=== PATIENT | male | born 1965 | race African-American/Black ===

== ENCOUNTER 2019-06-13 11:47 | Inpatient (IN) | payer OTHER ==
[2019-06-13 12:24] LABS: BASO % 1.1 % (0-2.0); EOS % 1.3 % (0-4.5); HEMATOCRIT 42.9 % (35.4-49); HEMOGLOBIN 14.3 GM/dL (11.7-16.9); LYMPH % 16.5 % (8-40); MCH 31.3 pg (25.7-33.7); MCHC 33.4 g/dl (32.0-35.9); MEAN CELL VOLUME 93.7 fl (80-96); MEAN PLT VOLUME 7.8 fl (7.5-11.1); MONO % 11.7 % (3.8-10.2); NEUT % 69.4 % (42.8-82.8); PLATELET COUNT 225 K/MM3 (134-434); RBC 4.57 M/mm3 (4.00-5.60); RDW 13.7 % (11.9-15.9); WHITE BLOOD COUNT 7.4 K/mm3 (4.0-10.0)
--- NOTE | 2019-06-13 12:50 | PDOC ---
Attending Attestation - ED Attending Attestation I have performed the following: I have examined & evaluated the patient, The case was reviewed & discussed with the resident, I agree w/resident's findings & plan, Exceptions are as noted Heart Score/ECG Review - History History: Highly suspicious - Electrocardiogram EKG: Non specific repolarization disturbance - Age Age: 45-65 - Risk Factors Risk Factors Heart Score: Yes Hx Hypertension, Yes Smoking History Based on the list above the patient has:: 1-2 risk factors - Troponin Troponin: </= normal limit - Score Heart Score - Total: 5
--- NOTE | 2019-06-13 12:51 | PDOC ---
History of Present Illness - General Chief Complaint: Chest Pain Stated Complaint: CHEST PAIN Time Seen by Provider: 06/13/19 12:08 - History of Present Illness Initial Comments: 06/13/19 12:32 HPI: 53 y/o M 1/2ppd active smoker and HTN BIBEMS from clinic for chest pain. He states it started last night after he got off work around midnight and was walking home. When he got to his place place of residence ([facility]) he felt chest pain across his chest with radiation to the neck and scapulas. Pain has been constant since last night and is unchanged. Described as dull pain and 6/ 10. He also reports increased SOB since last night that got worse this morning. He also reports GIRALDO, nausea, and diaphoresis during the episode last night. He did not take any intervention since last night. He also reports cough x3 days that has become productive with rhinorrhea and congestion. He reports never having symptoms like these in the past. He denies fever, chills, palpitations, emesis, abd pain, LE edema PMHx: as noted above FH: HTN and HLD in his father ROS: as noted SHx: daily smoker 1/2ppd; no alcohol use; no rec drugs Allergies: NKDA ROS: GENERAL/CONSTITUTIONAL: No fever or chills. No weakness. HEAD, EYES, EARS, NOSE AND THROAT: No change in vision. No ear pain or discharge. No sore throat. CARDIOVASCULAR: +chest pain and shortness of breath RESPIRATORY: +cough; no wheezing, or hemoptysis. GASTROINTESTINAL: +nausea; no vomiting, diarrhea or constipation. GENITOURINARY: No dysuria, frequency, or change in urination. MUSCULOSKELETAL: No joint or muscle swelling or pain. No neck or back pain. SKIN: No rash NEUROLOGIC: +headache; no vertigo, loss of consciousness, or change in strength/ sensation. ENDOCRINE: No increased thirst. No abnormal weight change HEMATOLOGIC/LYMPHATIC: No anemia, easy bleeding, or history of blood clots. ALLERGIC/IMMUNOLOGIC: No hives or skin allergy. PE: GENERAL: Awake, alert, and fully oriented, no acute distress HEAD: No signs of trauma, normocephalic, atraumatic EYES: EOMI, sclera anicteric, conjunctiva clear ENT: Auricles normal inspection, hearing grossly normal, nares patent, oropharynx clear without exudates. Moist mucosa NECK: Normal ROM, no lymphadenopathy LUNGS: No increased work of breathing, symmetrical chest rise, clear to auscultation bilaterally, no wheezes, crackles or rhonchi HEART: Regular rate and rhythm, normal S1 and S2, no murmurs, peripheral pulses 2+ and equal bilaterally. ABDOMEN: Soft, nondistended, nontender, normoactive bowel sounds. No guarding, no rebound. No masses. No CVAT EXTREMITIES: Normal inspection, Normal range of motion, no edema. No clubbing or cyanosis. NEUROLOGICAL: Cranial nerves II through XII grossly intact. Normal speech, normal gait, no focal sensorimotor deficits SKIN: Warm, Dry, normal turgor, no rashes or lesions noted Past History - Past Medical History Allergies/Adverse Reactions: Allergies Allergy/AdvReac Type Severity Reaction Status Date / Time No Known Allergies Allergy Verified 06/13/19 12:04 Home Medications: Ambulatory Orders NK [No Known Home Medication] 06/13/19 Anemia: No Asthma: No Cancer: No Cardiac Disorders: No CVA: No COPD: No CHF: No Dementia: No Diabetes: No GI Disorders: No Disorders: No HTN: Yes Hypercholesterolemia: No Liver Disease: No Seizures: No Thyroid Disease: No Other medical history: daily smoker - Surgical History GI Surgery: Yes (Hernia [id number]) - Psycho Social/Smoking Cessation Hx Smoking History: Current every day smoker Have you smoked in the past 12 months: Yes Number of Cigarettes Smoked Daily: 20 Information on smoking cessation initiated: No Hx Alcohol Use: No Drug/Substance Use Hx: No *Physical Exam - Vital Signs Last Vital Signs Temp Pulse Resp BP Pulse Ox 97.8 F 77 18 134/96 100 06/13/19 12:01 06/13/19 12:01 06/13/19 12:01 06/13/19 12:01 06/13/19 12:01 Heart Score/ECG Review - History History: Highly suspicious - Electrocardiogram EKG: Non specific repolarization disturbance - Age Age: 45-65 - Risk Factors Risk Factors Heart Score: Yes Hx Hypertension, Yes Smoking History Based on the list above the patient has:: 1-2 risk factors - Troponin Troponin: </= normal limit - Score Heart Score - Total: 5 ED Treatment Course - LABORATORY CBC & Chemistry Diagram: 06/13/19 12:19 06/13/19 12:19 - ADDITIONAL ORDERS Additional order review: 06/13/19 12:19 RBC 4.57 MCV 93.7 MCHC 33.4 RDW 13.7 MPV 7.8 D Neutrophils % 69.4 Lymphocytes % 16.5 D Monocytes % 11.7 H D Eosinophils % 1.3 Basophils % 1.1 - RADIOLOGY Radiology Studies Ordered: Category Date Time Status CHEST PA & LAT [RAD] Stat Radiology 06/13/19 12:29 Ordered Medical Decision Making - Medical Decision Making 06/13/19 13:06 53 y/o M 1/2ppd active smoker and HTN BIBEMS from clinic for chest pain associated with SOB, nausea, diaphoresis following exertion. BP 134/96 HR 77 O2 sats 100%. PE unremarkable. -cbc, cmp, trop, ekg, cxr 06/13/19 13:12 EKG: nsr, 1mm jan in leads v3/4 concave with j points without reciprocal changes , no t wave inversions, nl intervals HEART score 5 palces patient at moderate risk; will admit patient for tele obs 06/13/19 14:[address] Rea Discharge - Discharge Information Problems reviewed: Yes Clinical Impression/Diagnosis: Chest pain Qualifiers: Chest pain type: unspecified Qualified Code(s): R07.9 - Chest pain, unspecified Condition: Fair - Admission Yes - Follow up/Referral Referrals: Melinda Fox [Primary Care Provider] - - Patient Discharge Instructions - Post Discharge Activity
--- NOTE | 2019-06-13 12:54 | EKG ---
Test Reason : Blood Pressure : / mmHG Vent. Rate : 083 BPM Atrial Rate : 083 BPM P-R Int : 146 ms QRS Dur : 078 ms QT Int : 404 ms P-R-T Axes : 069 -26 035 degrees QTc Int : 474 ms NORMAL SINUS RHYTHM PROLONGED QT ABNORMAL ECG NO PREVIOUS ECGS AVAILABLE Confirmed by PAM MARQUEZ MD ([id number]) on 06/13/2019 12:54:42 PM Referred By: BARB HUERTAS Confirmed By:PAM MARQUEZ MD
[2019-06-13 13:09] LABS: ALBUMIN 3.6 g/dl (3.4-5.0); ALK PHOS 61 U/L (45-117); ANION GAP 5 MMOL/L (8-16); BILIRUBIN,TOTAL 0.4 mg/dL (0.2-1); BLOOD UREA NITROGEN 12.4 mg/dL (7-18); CALCIUM 8.4 mg/dL (8.5-10.1); CHLORIDE 105 mmol/L (98-107); CO2 27 mmol/L (21-32); GLUCOSE,RANDOM 79 mg/dL (74-106); POTASSIUM 4.4 mmol/L (3.5-5.1); SGOT/AST 34 U/L (15-37); SGPT/ALT 33 U/L (13-61); SODIUM 137 mmol/L (136-145); TOT PROT 6.4 g/dl (6.4-8.2)
--- NOTE | 2019-06-13 13:48 | PDOC ---
Documentation entered by Carlos Monge SCRIBE, acting as scribe for Rustam Alvarez MD. Rustam Alvarez MD: This documentation has been prepared by the Mariposa mason Xhesika, SCRIBE, under my direction and personally reviewed by me in its entirety. I confirm that the documentation accurately reflects all work, treatment, procedures, and medical decision making performed by me. Attending Attestation - Resident Resident Name: HenriPedro - ED Attending Attestation I have performed the following: I have examined & evaluated the patient, The case was reviewed & discussed with the resident, I agree w/resident's findings & plan, Exceptions are as noted - HPI HPI: 06/13/19 13:08 The patient is a 53 year old male with a PMH ppd active smoker BIBEMS from clinic for chest pain since last night. 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 Patient describes his CP as severe, constant, 6/10 in severity, like someone is sitting on his chest, radiating to his neck, associated with nausea, dizziness, sweating and SOB. Pt denies any alleviating or worsening factors. The patient denies leg swelling, abdominal pain, headache, fever, chills, cough, vomiting, diarrhea and constipation. Denies dysuria, frequency, urgency and hematuria. Allergies:, NKDA Social Hx: 1/2 ppd active smoker. Denies substance usage. Surgical Hx: abd hernia (at [facility]) - Physicial Exam PE: 06/13/19 13:09 Vitals: Triage Vital signs reviewed General Appearance: no acute distress, well nourished well developed, Neck: Supple;No Nuchal rigidity Chest Wall: Nontender Cardiac: Regular rate and rhythm, no murmurs, no rubs, no gallops, Lungs: Clear to auscultation bilateral, good air movement bilaterally, Abdomen: Soft, nondistended, normal bowel sounds, nontender to palpation Extremities: Full range of motion to all extremities, no cyanosis, clubbing, or edema Skin: Warm and dry, no rashes or lesions, no petechiae Psych: normal mood, normal affect 06/13/19 15:55 - Medical Decision Making 06/13/19 15:56 Moderately suspicious story heart score 5 nonischemic EKG first troponin negative multiple risk factors will observe for cardiac consultation and further evaluation to rule out ACS Heart Score/ECG Review - History History: Highly suspicious - Electrocardiogram EKG: Non specific repolarization disturbance - Age Age: 45-65 - Risk Factors Risk Factors Heart Score: Yes Hx Hypercholesterolemia, Yes Hx Hypertension, Yes Smoking History Based on the list above the patient has:: 1-2 risk factors - Troponin Troponin: </= normal limit - Score Heart Score - Total: 5 - ECG Impressions Comment:: 06/13/19 15:56 Septal J-point elevations No reciprocal changes Interpreted by me.
--- NOTE | 2019-06-13 14:47 | HP ---
CHIEF COMPLAINT: Chest pain PCP: Dr Busby HISTORY OF PRESENT ILLNESS: Pt is a 53 y/o M with a significant past medical history of HTN, HLD, and prediabetes who presented to [facility] due to chest pain and shortness of breath. Pt endorses that his chest pain commenced yesterday evening around midnight. Pt was returning from work to his home when the pain began. Pt was not exerting himself. Pain is described as crushing, radiates to his back and neck, and is a 7/10 in severity. Pt endorses he has never experienced these symptoms before. States he has been smoking 1 PPD of cigarettes since he was 12 years old. States he vomited 1-2 times since the onset of the pain, Pt endorses shortness of breath and a "pounding headache". Denies LOC. ER course was notable for: (1) EKG--> T Wave inversion in V4 on EKG done at [facility]. (2) 1st trop negative. (3)CXR---> no widened mediastinum, infiltrates, or congestive changes. Allergies: Penicillin, Codeine, and PPD HOME MEDICATIONS: Home Medications Medication Instructions Recorded NK [No Known Home Medication] 06/13/19 REVIEW OF SYSTEMS CONSTITUTIONAL: Absent: fever, chills, diaphoresis, generalized weakness, malaise, loss of appetite, weight change HEENT: Absent: rhinorrhea, nasal congestion, throat pain, throat swelling, difficulty swallowing, mouth swelling, ear pain, eye pain, visual changes CARDIOVASCULAR: PRESENT: chest pain RESPIRATORY: Absent: cough, shortness of breath, dyspnea with exertion, orthopnea, wheezing, stridor, hemoptysis GASTROINTESTINAL: Absent: abdominal pain, abdominal distension, nausea, vomiting, diarrhea, constipation, melena, hematochezia GENITOURINARY: Absent: dysuria, frequency, urgency, hesitancy, hematuria, flank pain, genital pain MUSCULOSKELETAL: Absent: myalgia, arthralgia, joint swelling, back pain, neck pain SKIN: Absent: rash, itching, pallor HEMATOLOGIC/IMMUNOLOGIC: Absent: easy bleeding, easy bruising, lymphadenopathy, frequent infections ENDOCRINE: Absent: unexplained weight gain, unexplained weight loss, heat intolerance, cold intolerance NEUROLOGIC: Absent: headache, focal weakness or paresthesias, dizziness, unsteady gait, seizure, mental status changes, bladder or bowel incontinence PSYCHIATRIC: Absent: anxiety, depression, suicidal or homicidal ideation, hallucinations. PHYSICAL EXAMINATION Vital Signs - 24 hr 06/13/19 12:01 Temperature 97.8 F Pulse Rate 77 Respiratory 18 Rate Blood Pressure 134/96 O2 Sat by Pulse 100 Oximetry (%) GENERAL: NAD AAOx3 HEAD: Normal with no signs of trauma. EYES: Sclera Clear EOMI EARS, NOSE, THROAT: MMM NECK: Supple LUNGS: CTA B/l HEART: RRR S1S2 Chest: No tenderness to palpation of anterior chest wall ABDOMEN: Soft, Nondistended MUSCULOSKELETAL: FROM LOWER EXTREMITIES: No CCE NEUROLOGICAL: Cranial nerves II-XII intact. Normal speech. PSYCHIATRIC: Cooperative. Good eye contact. Appropriate mood and affect. SKIN: Warm, dry, normal turgor, no rashes or lesions noted, normal capillary refill. Laboratory Results - last 24 hr 06/13/19 06/13/19 12:19 12:19 WBC 7.4 RBC 4.57 Hgb 14.3 Hct 42.9 MCV 93.7 MCH 31.3 MCHC 33.4 RDW 13.7 Plt Count 225 MPV 7.8 D Absolute Neuts (auto) 5.2 Neutrophils % 69.4 Lymphocytes % 16.5 D Monocytes % 11.7 H D Eosinophils % 1.3 Basophils % 1.1 Nucleated RBC % 0 Sodium 137 Potassium 4.4 Chloride 105 Carbon Dioxide 27 Anion Gap 5 L BUN 12.4 Creatinine 1.0 Est GFR (CKD-EPI)AfAm 98.46 Est GFR (CKD-EPI)NonAf 84.95 Random Glucose 79 Calcium 8.4 L Total Bilirubin 0.4 AST 34 ALT 33 Alkaline Phosphatase 61 Troponin I < 0.02 Total Protein 6.4 Albumin 3.6 ASSESSMENT/PLAN: Pt is a 53 y/o M with a significant past medical history of HTN, HLD, and prediabetes who presented to [facility] due to chest pain and shortness of breath. #Chest Pain-r/o ACS -1st Troponin is negative. will trend -Echocardiogram to assess for any wall motion abnormalities -Cardiology Consult. recs appreciated -lipid Profile -HgA1c -Repeat EKG -Tele monitoring -Urine toxicology #FEN -No standing fluids -Monitor Electrolytes -Sodium Controlled Diet #DVT ppx: -HEPSQTID #Dispo -Tele Obs Visit type - Emergency Visit Emergency Visit: Yes ED Registration Date: 06/13/19 Care time: The patient presented to the Emergency Department on the above date and was hospitalized for further evaluation of their emergent condition. - New Patient This patient is new to me today: Yes Date on this admission: 06/13/19 - Critical Care Critical Care patient: No
--- NOTE | 2019-06-13 15:45 | ECHO ---
Name: BLANCA ANKUR Exam:Adult Echocardiogram Study Date: 06/13/2019 02:45 PM Age: 53 yrs Reason For Study: R/O LV Dysfunction Height: 71 in Weight: 179 lb BSA: 2.0 m2 MMode/2D Measurements & Calculations IVSd: 1.2 cm Ao root diam: 3.3 cm LVIDd: 4.0 cm LA dimension: 3.4 cm LVIDs: 2.8 cm ACS: 2.0 cm LVPWd: 1.5 cm EDV(Teich): 71.4 ml LVOT diam: 2.0 cm ESV(Teich): 30.4 ml RV S Walker: 16.2 cm/sec Doppler Measurements & Calculations MV E max walker: 56.3 cm/sec Ao V2 max: 180.5 cm/sec MV A max walker: 46.4 cm/sec Ao max P.0 mmHg MV E/A: 1.2 Ao V2 mean: 121.5 cm/sec MV dec time: 0.35 sec Ao mean P.9 mmHg Ao V2 VTI: 34.7 cm JOSEPH(I,D): 2.1 cm2 JOSEPH(V,D): 2.0 cm2 LV V1 max P.8 mmHg SV(LVOT): 71.4 ml LV V1 mean P.3 mmHg LV V1 max: 109.8 cm/sec LV V1 mean: 70.5 cm/sec LV V1 VTI: 22.1 cm TR max walker: 222.2 cm/sec Med Peak E' Walker: 11.7 cm/sec TR max P.8 mmHg Med E/e': 4.8 Lat Peak E' Walker: 12.2 cm/sec Lat E/e': 4.6 Left Ventricle There is mild concentric left ventricular hypertrophy. Left ventricular systolic function is normal. Ejection Fraction = 55-60%. Right Ventricle The right ventricle is normal in size and function. Atria Normal left and right atrial size and function. Mitral Valve There is mild mitral valve thickening. There is no mitral valve stenosis. There is trace to mild mitr al regurgitation. Tricuspid Valve The tricuspid valve is normal in structure and function. There is mild tricuspid regurgitation. Right ventricular systolic pressure is normal. Aortic Valve There is mild aortic valve thickening. No hemodynamically significant valvular aortic stenosis. No ao rtic regurgitation is present. Pulmonic Valve The pulmonic valve is not well seen, but is grossly normal. There is no pulmonic valvular stenosis. T here is no pulmonic valvular regurgitation. Great Vessels The aortic root is normal size. Pericardium/Pleura There is no pericardial effusion. Interpretation Summary There is mild concentric left ventricular hypertrophy. Left ventricular systolic function is normal. Ejection Fraction = 55-60%. The right ventricle is normal in size and function. There is mild mitral valve thickening. There is trace to mild mitral regurgitation. There is mild tricuspid regurgitation. Right ventricular systolic pressure is normal. There is no pericardial effusion. MD Watt *Ami 06/13/2019 03:45 PM
--- NOTE | 2019-06-13 16:02 | CON.CARD ---
Consult Consult Specialty:: Cardiology Referred by:: Hospitalist Medicine Reason for Consultation:: Chest pain - History of Present Illness Chief Complaint: Chest pain History of Present Illness: Pt is a 53 y/o M with a significant past medical history of HTN, HLD, and prediabetes not on meds who presented to [facility] due to chest pain and shortness of breath. Pt endorses that his chest pain commenced yesterday evening around midnight. Pain is described as pressure, radiates to his back and neck, spontaneously improving. States he has been smoking 1 PPD of cigarettes since he was 12 years old, reports chronic EASLEY, denies near or true syncope, palpitations, orthopnea, PND or LE edema. Multiple stressors, living in half-way. Allergies:, NKDA Social Hx: 1/2 ppd active smoker. Denies substance usage. Surgical Hx: abd hernia (at [facility]) - History Source History Provided By: Patient Limitations to Obtaining History: No Limitations - Alcohol/Substance Use Hx Alcohol Use: No - Smoking History Smoking history: Current every day smoker Have you smoked in the past 12 months: Yes Aproximately how many cigarettes per day: 20 Home Medications - Allergies Allergies/Adverse Reactions: Allergies Allergy/AdvReac Type Severity Reaction Status Date / Time codeine Allergy Verified 06/13/19 16:12 Penicillins Allergy Verified 06/13/19 16:12 PPD black rubber mix Allergy Verified 06/13/19 16:12 - Home Medications Home Medications: Ambulatory Orders NK [No Known Home Medication] 06/13/19 Review of Systems - Review of Systems Cardiovascular: reports: Chest Pain Vital Signs: Vital Signs Temperature 97.8 F 06/13/19 12:01 Pulse Rate 77 06/13/19 12:01 Respiratory Rate 18 06/13/19 12:01 Blood Pressure 134/96 06/13/19 12:01 O2 Sat by Pulse Oximetry (%) 100 06/13/19 12:01 Constitutional: Yes: No Distress, Calm Neck: Yes: Supple Respiratory: Yes: Regular, CTA Bilaterally Gastrointestinal: Yes: Soft, Hypoactive Bowel Sounds Cardiovascular: Yes: Regular Rate and Rhythm JVD: No Carotid Bruit: No Heart Sounds: Yes: S1, S2 Edema: No - Other Data Labs, Other Data: CBC, BMP 06/13/19 12:19 06/13/19 12:19 Troponin, BNP 06/13/19 12:19 Troponin I < 0.02 Troponin, BNP 06/13/19 12:19 Troponin I < 0.02 NSR @ 73 early repolarization Echo: Report Reviewed Ejection Fraction %: LVEF > or = 40 % Imaging - Results Chest X-ray: Report Reviewed (NAD) Problem List - Problems (1) Chest pain Code(s): R07.9 - CHEST PAIN, UNSPECIFIED Qualifiers: Chest pain type: precordial pain Qualified Code(s): R07.2 - Precordial pain (2) Hypertensive heart disease Code(s): I11.9 - HYPERTENSIVE HEART DISEASE WITHOUT HEART FAILURE Qualifiers: Heart failure presence: without heart failure Qualified Code(s): I11.9 - Hypertensive heart disease without heart failure Assessment/Plan 06/13/2019 Echo: Mild cLVH , normal LVEF 55-60%, normal RV size and fxn, mild TR normal RVSP, tr-mild MR 1. Chest pain/LIV 2. HTN heart disease 3. Hyperlipidemia 4. Prediabetes P:1. Ruling out for [place] 2. Consider exercise treadmill stress testing after r/o WI to assess r/o ischemia, but patient is not inclined to stay pver weekend for testing 3. Check TSH, lipid panel, Ha1c 4. Thank you for consultative opportunity
--- NOTE | 2019-06-13 16:47 | PN ---
Teaching Attending Note Name of Resident: Gagandeep Gaston ATTENDING PHYSICIAN STATEMENT I saw and evaluated the patient. I reviewed the resident's note and discussed the case with the resident. I agree with the resident's findings and plan as documented. SUBJECTIVE: Patient is a 53 y/o M with Pmhx of HTN, HLD, and prediabetes who presented to [facility] due to chest pain and shortness of breath. Denies having any chest pain at this time. OBJECTIVE: Vital Signs Temperature 97.8 F 06/13/19 12:01 Pulse Rate 77 06/13/19 12:01 Respiratory Rate 18 06/13/19 12: Blood Pressure 134/96 06/13/19 12: O2 Sat by Pulse Oximetry (%) 100 06/13/19 12:01 GENERAL: The patient is awake, alert, and fully oriented, in no acute distress. HEAD: Normal with no signs of trauma. EYES: PERRL, extraocular movements intact, sclera anicteric, conjunctiva clear. ENT: Ears normal, oropharynx clear without exudates, moist mucous membranes. NECK: Trachea midline, full range of motion, supple. LUNGS: Breath sounds equal, clear to auscultation bilaterally, no wheezes, no crackles, no accessory muscle use. HEART: Regular rate and rhythm, S1, S2 without murmur, rub or gallop. ABDOMEN: Soft, nontender, nondistended, normoactive bowel sounds, no guarding, no rebound, no hepatosplenomegaly, no masses. EXTREMITIES: 2+ pulses, warm, well-perfused, no edema. NEUROLOGICAL: Cranial nerves II through XII grossly intact. Normal speech, gait not observed. PSYCH: Normal mood, normal affect. SKIN: Warm, dry, normal turgor, no rashes or lesions noted CBCD WBC 7.4 K/mm3 (4.0-10.0) 06/13/19 12: RBC 4.57 M/mm3 (4.00-5.60) 06/13/19 12:19 Hgb 14.3 GM/dL (11.7-16.9) 06/13/19 12:19 Hct 42.9 % (35.4-49) 06/13/19 12:19 MCV 93.7 fl (80-96) 06/13/19 12:19 MCHC 33.4 g/dl (32.0-35.9) 06/13/19 12:19 RDW 13.7 % (11.9-15.9) 06/13/19 12:19 Plt Count 225 K/MM3 (134-434) 06/13/19 12:19 MPV 7.8 fl (7.5-11.1) D 06/13/19 12:19 CMP Sodium 137 mmol/L (136-145) 06/13/19 12:19 Potassium 4.4 mmol/L (3.5-5.1) 06/13/19 12:19 Chloride 105 mmol/L (98-107) 06/13/19 12:19 Carbon Dioxide 27 mmol/L (21-32) 06/13/19 12:19 Anion Gap 5 MMOL/L (8-16) L 06/13/19 12:19 BUN 12.4 mg/dL (7-18) 06/13/19 12:19 Creatinine 1.0 mg/dL (0.55-1.3) 06/13/19 12:19 Random Glucose 79 mg/dL (74-106) 06/13/19 12:19 Calcium 8.4 mg/dL (8.5-10.1) L 06/13/19 12:19 Total Bilirubin 0.4 mg/dL (0.2-1) 06/13/19 12:19 AST 34 U/L (15-37) 06/13/19 12:19 ALT 33 U/L (13-61) 06/13/19 12:19 Alkaline Phosphatase 61 U/L (45-117) 06/13/19 12:19 Total Protein 6.4 g/dl (6.4-8.2) 06/13/19 12:19 Albumin 3.6 g/dl (3.4-5.0) 06/13/19 12:19 CARDIAC ENZYMES Troponin I < 0.02 ng/ml (0.00-0.05) 06/13/19 12:19 Current Medications Generic Name Dose Route Start Last Admin Trade Name Elizabeth PRN Reason Stop Dose Admin Aspirin 81 mg 06/14/19 10:00 Ecotrin - PO DAILY NEIL Heparin Sodium (Porcine) 5,000 unit 06/13/19 22:00 Heparin - SQ TID COUNTS INCLUDE 234 BEDS AT THE [facility] Home Medications Medication Instructions Recorded NK [No Known Home Medication] 06/13/19 ECHO: mild concentric left ventricular hypertrophy LV systolic Function is Nl EJF: 55-60% trace Mr, mild MR NSR @ 73 early repolarization ASSESSMENT AND PLAN: Pt is a 53 y/o M with a PMhx of HTN, HLD, and prediabetes who presented to the hospital due to having chest pain with shortness of breath. #Acute cp r/o ACS; 2 sets of trops are negative. will trend, lipid panel, echo is done as above , lipid Profile, HgA1c -Repeat EKG in am , Tele monitoring. As per cardio discussion with would like stress test in patient on Sunday since patient is a high risk with Heart score of 5 and Ekg with early repolarizaTION. ECasa 81mg daily. Exercise treadmill stress testing after r/o [place] to assess and r/o ischemia, but patient is not inclined to stay pver weekend for testing #Hx of HLD: will repeat lipid panel # hx of prediabetus: check hgb A1c, tsh ,ft4 # Hx of HTN will monitor DVT ppx: heparin patient wanted to sign AMA , as per cardiology patient cannot be discharged, until stress test on Sunday.
[2019-06-13 17:36] LABS: CHOLESTEROL 133 mg/dL (50-200); HDL CHOLESTEROL 55 mg/dL (40-60); LDL CHOLESTEROL (ONLY SJRH) 71 mg/dL (5-100); TRIGLYCERIDES 66 mg/dL (0-150)
[2019-06-13] MEDS: HEPARIN NA (PORCINE) 5,000 UNITS/ML 1ML VIAL SQ SCH (21:29)
[2019-06-13 21:47] VITALS: BMI 24.6
[2019-06-14] MEDS: HEPARIN NA (PORCINE) 5,000 UNITS/ML 1ML VIAL SQ SCH ×2 (05:47→14:09)
[2019-06-14] MEDS ORDERED: NICOTINE 7 MG/24 HOURS TOPICAL PATCH TD ONE (06:52)
[2019-06-14 08:56] LABS: BASO % 0.6 % (0-2.0); EOS % 3.2 % (0-4.5); HEMATOCRIT 42.5 % (35.4-49); HEMOGLOBIN 14.3 GM/dL (11.7-16.9); LYMPH % 38.5 % (8-40); MCH 31.6 pg (25.7-33.7); MCHC 33.6 g/dl (32.0-35.9); MEAN CELL VOLUME 93.9 fl (80-96); MEAN PLT VOLUME 8.4 fl (7.5-11.1); MONO % 11.6 % (3.8-10.2); NEUT % 46.1 % (42.8-82.8); PLATELET COUNT 230 K/MM3 (134-434); RBC 4.53 M/mm3 (4.00-5.60); RDW 13.4 % (11.9-15.9); WHITE BLOOD COUNT 5.7 K/mm3 (4.0-10.0)
[2019-06-14 08:59] LABS: INR 0.98 (0.83-1.09); PROTHROMBIN TIME (PATIENT) 11.6 SEC (9.7-13.0)
[2019-06-14 09:02] LABS: ACTIVATED PTT 35.3 SECONDS (25.2-36.5)
[2019-06-14 09:23] LABS: MAGNESIUM 2.2 mg/dL (1.8-2.4); PHOSPHOROUS 4.1 mg/dL (2.5-4.9)
[2019-06-14] MEDS ORDERED: ASPIRIN COATED 81 MG TABLET.EC PO SCH (10:00)
--- NOTE | 2019-06-14 11:42 | PN ---
Progress Note (short form) - Note Progress Note: Patient is a 53 y/o M with Pmhx of HTN, HLD, and prediabetes who presented to [facility] due to chest pain and shortness of breath. Denies having any chest pain at this time. Patient's at bedside, asking for anxiety medication . OBJECTIVE: Vital Signs Temperature 97.3 F L 06/14/19 06:27 Pulse Rate 95 H 06/14/19 06:27 Respiratory Rate 20 06/14/19 06:27 Blood Pressure 120/65 06/14/19 06:27 O2 Sat by Pulse Oximetry (%) 100 06/13/19 21:00 GENERAL: The patient is awake, alert, and fully oriented, in no acute distress. HEAD: Normal with no signs of trauma. EYES: PERRL, extraocular movements intact, sclera anicteric, conjunctiva clear. ENT: Ears normal, oropharynx clear without exudates, moist mucous membranes. NECK: Trachea midline, full range of motion, supple. LUNGS: Breath sounds equal, clear to auscultation bilaterally, no wheezes, no crackles, no accessory muscle use. HEART: Regular rate and rhythm, S1, S2 without murmur, rub or gallop. ABDOMEN: Soft, NT,ND, no guarding, no rebound, no hepatosplenomegaly, no masses. EXTREMITIES: 2+ pulses, warm, well-perfused, no edema. NEUROLOGICAL: Cranial nerves II through XII grossly intact. Normal speech, gait not observed. PSYCH: Normal mood, normal affect. SKIN: Warm, dry, normal turgor, no rashes or lesions noted CBCD WBC 5.7 K/mm3 (4.0-10.0) 06/14/19 07:30 RBC 4.53 M/mm3 (4.00-5.60) 06/14/19 07:30 Hgb 14.3 GM/dL (11.7-16.9) 06/14/19 07:30 Hct 42.5 % (35.4-49) 06/14/19 07:30 MCV 93.9 fl (80-96) 06/14/19 07:30 MCHC 33.6 g/dl (32.0-35.9) 06/14/19 07:30 RDW 13.4 % (11.9-15.9) 06/14/19 07:30 Plt Count 230 K/MM3 (134-434) 06/14/19 07:30 MPV 8.4 fl (7.5-11.1) 06/14/19 07:30 CMP Sodium 137 mmol/L (136-145) 06/13/19 12:19 Potassium 4.4 mmol/L (3.5-5.1) 06/13/19 12:19 Chloride 105 mmol/L (98-107) 06/13/19 12:19 Carbon Dioxide 27 mmol/L (21-32) 06/13/19 12:19 Anion Gap 5 MMOL/L (8-16) L 06/13/19 12:19 BUN 12.4 mg/dL (7-18) 06/13/19 12:19 Creatinine 1.0 mg/dL (0.55-1.3) 06/13/19 12:19 Random Glucose 79 mg/dL (74-106) 06/13/19 12:19 Calcium 8.4 mg/dL (8.5-10.1) L 06/13/19 12:19 Total Bilirubin 0.4 mg/dL (0.2-1) 06/13/19 12:19 AST 34 U/L (15-37) 06/13/19 12:19 ALT 33 U/L (13-61) 06/13/19 12:19 Alkaline Phosphatase 61 U/L (45-117) 06/13/19 12:19 Total Protein 6.4 g/dl (6.4-8.2) 06/13/19 12:19 Albumin 3.6 g/dl (3.4-5.0) 06/13/19 12:19 CARDIAC ENZYMES Troponin I < 0.02 ng/ml (0.00-0.05) 06/13/19 16:52 Current Medications Generic Name Dose Route Start Last Admin Trade Name Freq PRN Reason Stop Dose Admin Aspirin 81 mg 06/14/19 10:00 06/14/19 10:18 Ecotrin - PO 81 mg DAILY NEIL Administration Heparin Sodium (Porcine) 5,000 unit 06/13/19 22:00 06/14/19 05:47 Heparin - SQ 5,000 unit TID NEIL Administration CBCD WBC 5.7 K/mm3 (4.0-10.0) 06/14/19 07:30 RBC 4.53 M/mm3 (4.00-5.60) 06/14/19 07:30 Hgb 14.3 GM/dL (11.7-16.9) 06/14/19 07:30 Hct 42.5 % (35.4-49) 06/14/19 07:30 MCV 93.9 fl (80-96) 06/14/19 07:30 MCHC 33.6 g/dl (32.0-35.9) 06/14/19 07:30 RDW 13.4 % (11.9-15.9) 06/14/19 07:30 Plt Count 230 K/MM3 (134-434) 06/14/19 07:30 MPV 8.4 fl (7.5-11.1) 06/14/19 07:30 CMP Sodium 137 mmol/L (136-145) 06/13/19 12:19 Potassium 4.4 mmol/L (3.5-5.1) 06/13/19 12:19 Chloride 105 mmol/L (98-107) 06/13/19 12:19 Carbon Dioxide 27 mmol/L (21-32) 06/13/19 12:19 Anion Gap 5 MMOL/L (8-16) L 06/13/19 12:19 BUN 12.4 mg/dL (7-18) 06/13/19 12:19 Creatinine 1.0 mg/dL (0.55-1.3) 06/13/19 12:19 Random Glucose 79 mg/dL (74-106) 06/13/19 12:19 Calcium 8.4 mg/dL (8.5-10.1) L 06/13/19 12:19 Total Bilirubin 0.4 mg/dL (0.2-1) 06/13/19 12:19 AST 34 U/L (15-37) 06/13/19 12:19 ALT 33 U/L (13-61) 06/13/19 12:19 Alkaline Phosphatase 61 U/L (45-117) 06/13/19 12:19 Total Protein 6.4 g/dl (6.4-8.2) 06/13/19 12:19 Albumin 3.6 g/dl (3.4-5.0) 06/13/19 12:19 CARDIAC ENZYMES Troponin I < 0.02 ng/ml (0.00-0.05) 06/13/19 16:52 ECHO: mild concentric left ventricular hypertrophy LV systolic Function is Nl EJF: 55-60% trace Mr, mild MR NSR @ 73 early repolarization ASSESSMENT AND PLAN: Pt is a 53 y/o M with a PMhx of HTN, HLD, and prediabetes who presented to the hospital due to having chest pain with shortness of breath. #Acute cp r/o ACS; 2 sets of trops are negative. lipid panel nl, echo is done as above , HgA1c is normal. As per cardio patient can be discharged home. As per Dr. Luz patient can have a stress test as an outpatient. Continue Ecotrin 81mg daily. Given an apoointment with the clinic and cardiology # As per patient has a hx of PTSD and anxiety: seen and prescribed 5mg lexapro po daily and follow up with his psychiatrist as an outpatient. #Hx of HLD: will repeat lipid panel # hx of prediabetus: within nl limit # Hx of HTN will monitor patient can be discharged home.
[2019-06-14 12:01] LABS: ALBUMIN 3.6 g/dl (3.4-5.0); BILIRUBIN,TOTAL 0.4 mg/dL (0.2-1); BLOOD UREA NITROGEN 24.4 mg/dL (7-18); CALCIUM 8.5 mg/dL (8.5-10.1); CREATININE 1.1 mg/dL (0.55-1.3); POTASSIUM 4.5 mmol/L (3.5-5.1); TOT PROT 6.3 g/dl (6.4-8.2)
--- NOTE | 2019-06-14 12:27 | PN ---
Progress Note (short form) - Note Progress Note: Chief Complaint: Events noted, notes reviewed, denies any recurrent chest pain or dyspnea History of Present Illness: Seen and examined. Events noted, notes reviewed, denies any recurrent chest pain or dyspnea Patient reports anxiety and rueda s a history of PTSD - Current Medication List Current Medications Aspirin (Ecotrin -) 81 mg PO DAILY [facility] Last Admin: 06/14/19 10:18 Dose: 81 mg Heparin Sodium (Porcine) (Heparin -) 5,000 unit SQ TID [facility] Last Admin: 06/14/19 05:47 Dose: 5,000 unit - Objective Vital Signs: Last Vital Signs Temp Pulse Resp BP Pulse Ox 97.3 F L 95 H 20 120/65 100 06/14/19 06:27 06/14/19 06:27 06/14/19 06:27 06/14/19 06:27 06/13/19 21:00 Intake & Output 06/11/19 06/12/19 06/13/19 06/14/19 23:59 23:59 23:59 23:59 Intake Total 500 Balance 500 Weight 176 lb 8 oz Neck: Supple Negative JVD No Bruit Respiratory: Clear to A&P Bilaterally Cardiovascular: S1 S2 Regular Rate and Rhythm Gastrointestinal: Soft Benign Normal Bowel Sounds Ext: No Edema Labs: CBC, BMP 06/14/19 07:30 06/14/19 07:30 Hepatic Panel Total Bilirubin 0.4 mg/dL (0.2-1) 06/14/19 07:30 AST 22 U/L (15-37) 06/14/19 07:30 ALT 31 U/L (13-61) 06/14/19 07:30 Alkaline Phosphatase 59 U/L (45-117) 06/14/19 07:30 Albumin 3.6 g/dl (3.4-5.0) 06/14/19 07:30 INR, PTT INR 0.98 (0.83-1.09) 06/14/19 07:30 Assessment/Plan ASSESSMENT: 1. Chest pain syndrome with no evidence of ACS for further outpatient evaluation 2. HTN 3. Abnormal/elevated Hg A1c 4. CKD 5. Tobacco abuse PLAN: 1. Continue ASA 2. If recurrent chest pain recommend B-Blockers 3. Counselled smoking cessation and abstinence 4. Recommend outpatient echocardiography and MPI study, discussed in detail with the patient and his who was at the bedside Can be be D/C home from the cardiovascular point of view Shin Dimas M.D.
[2019-06-14 15:14] VITALS: BP 132/88; PULSE 87; TEMP 98.4
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
--- NOTE | 2019-06-14 16:02 | DS ---
Physical Exam: SUBJECTIVE: Patient seen and examined Patient is a 53 y/o M with Pmhx of HTN, HLD, and prediabetes who presented to [facility] due to chest pain and shortness of breath. Denies having any chest pain at this time. Patient's at bedside, asking for anxiety medication . OBJECTIVE: Vital Signs Temperature 97.3 F L 06/14/19 06:27 Pulse Rate 95 H 06/14/19 06:27 Respiratory Rate 20 06/14/19 06:27 Blood Pressure 120/65 06/14/19 06:27 O2 Sat by Pulse Oximetry (%) 100 06/13/19 21:00 GENERAL: The patient is awake, alert, and fully oriented, in no acute distress. HEAD: Normal with no signs of trauma. EYES: PERRL, extraocular movements intact, sclera anicteric, conjunctiva clear. ENT: Ears normal, oropharynx clear without exudates, moist mucous membranes. NECK: Trachea midline, full range of motion, supple. LUNGS: Breath sounds equal, clear to auscultation bilaterally, no wheezes, no crackles, no accessory muscle use. HEART: Regular rate and rhythm, S1, S2 without murmur, rub or gallop. ABDOMEN: Soft, NT,ND, no guarding, no rebound, no hepatosplenomegaly, no masses. EXTREMITIES: 2+ pulses, warm, well-perfused, no edema. NEUROLOGICAL: Cranial nerves II through XII grossly intact. Normal speech, gait is stable PSYCH: Normal mood, normal affect. SKIN: Warm, dry, normal turgor, no rashes or lesions noted CBCD WBC 5.7 K/mm3 (4.0-10.0) 06/14/19 07:30 RBC 4.53 M/mm3 (4.00-5.60) 06/14/19 07:30 Hgb 14.3 GM/dL (11.7-16.9) 06/14/19 07:30 Hct 42.5 % (35.4-49) 06/14/19 07:30 MCV 93.9 fl (80-96) 06/14/19 07:30 MCHC 33.6 g/dl (32.0-35.9) 06/14/19 07:30 RDW 13.4 % (11.9-15.9) 06/14/19 07:30 Plt Count 230 K/MM3 (134-434) 06/14/19 07:30 MPV 8.4 fl (7.5-11.1) 06/14/19 07:30 CMP Sodium 137 mmol/L (136-145) 06/13/19 12:19 Potassium 4.4 mmol/L (3.5-5.1) 06/13/19 12:19 Chloride 105 mmol/L (98-107) 06/13/19 12:19 Carbon Dioxide 27 mmol/L (21-32) 06/13/19 12:19 Anion Gap 5 MMOL/L (8-16) L 06/13/19 12:19 BUN 12.4 mg/dL (7-18) 06/13/19 12:19 Creatinine 1.0 mg/dL (0.55-1.3) 06/13/19 12:19 Random Glucose 79 mg/dL (74-106) 06/13/19 12:19 Calcium 8.4 mg/dL (8.5-10.1) L 06/13/19 12:19 Total Bilirubin 0.4 mg/dL (0.2-1) 06/13/19 12:19 AST 34 U/L (15-37) 06/13/19 12:19 ALT 33 U/L (13-61) 06/13/19 12:19 Alkaline Phosphatase 61 U/L (45-117) 06/13/19 12:19 Total Protein 6.4 g/dl (6.4-8.2) 06/13/19 12:19 Albumin 3.6 g/dl (3.4-5.0) 06/13/19 12:19 CARDIAC ENZYMES Troponin I < 0.02 ng/ml (0.00-0.05) 06/13/19 16:52 Current Medications Generic Name Dose Route Start Last Admin Trade Name Anandq PRN Reason Stop Dose Admin Aspirin 81 mg 06/14/19 10:00 06/14/19 10:18 Ecotrin - PO 81 mg DAILY NEIL Administration Heparin Sodium (Porcine) 5,000 unit 06/13/19 22:00 06/14/19 05:47 Heparin - SQ 5,000 unit TID NEIL Administration CBCD WBC 5.7 K/mm3 (4.0-10.0) 06/14/19 07:30 RBC 4.53 M/mm3 (4.00-5.60) 06/14/19 07:30 Hgb 14.3 GM/dL (11.7-16.9) 06/14/19 07:30 Hct 42.5 % (35.4-49) 06/14/19 07:30 MCV 93.9 fl (80-96) 06/14/19 07:30 MCHC 33.6 g/dl (32.0-35.9) 06/14/19 07:30 RDW 13.4 % (11.9-15.9) 06/14/19 07:30 Plt Count 230 K/MM3 (134-434) 06/14/19 07:30 MPV 8.4 fl (7.5-11.1) 06/14/19 07:30 CMP Sodium 137 mmol/L (136-145) 06/13/19 12:19 Potassium 4.4 mmol/L (3.5-5.1) 06/13/19 12:19 Chloride 105 mmol/L (98-107) 06/13/19 12:19 Carbon Dioxide 27 mmol/L (21-32) 06/13/19 12:19 Anion Gap 5 MMOL/L (8-16) L 06/13/19 12:19 BUN 12.4 mg/dL (7-18) 06/13/19 12:19 Creatinine 1.0 mg/dL (0.55-1.3) 06/13/19 12:19 Random Glucose 79 mg/dL (74-106) 06/13/19 12:19 Calcium 8.4 mg/dL (8.5-10.1) L 06/13/19 12:19 Total Bilirubin 0.4 mg/dL (0.2-1) 06/13/19 12:19 AST 34 U/L (15-37) 06/13/19 12:19 ALT 33 U/L (13-61) 06/13/19 12:19 Alkaline Phosphatase 61 U/L (45-117) 06/13/19 12:19 Total Protein 6.4 g/dl (6.4-8.2) 06/13/19 12:19 Albumin 3.6 g/dl (3.4-5.0) 06/13/19 12:19 CARDIAC ENZYMES Troponin I < 0.02 ng/ml (0.00-0.05) 06/13/19 16:52 ECHO: mild concentric left ventricular hypertrophy LV systolic Function is Nl EJF: 55-60% trace Mr, mild MR NSR @ 73 early repolarization HOSPITAL COURSE: Date of Admission:06/13/19 Date of Discharge: 06/14/19 Pt is a 53 y/o M with a PMhx of HTN, HLD, and prediabetes who presented to the hospital due to having chest pain with shortness of breath. #Acute cp r/o ACS; 2 sets of trops are negative. lipid panel nl, echo is done as above , HgA1c is normal. As per cardio patient can be discharged home. As per Dr. Luz patient can have a stress test as an outpatient. Continue Ecotrin 81mg daily. Given an apoointment with the clinic and cardiology # As per patient has a hx of PTSD and anxiety: seen and prescribed 5mg lexapro po daily and patient will follow up with his psychiatrist as an outpatient. #Hx of HLD: will repeat lipid panel # hx of prediabetus: within nl limit # Hx of HTN will monitor patient can be discharged home. Minutes to complete discharge: 35 Discharge Summary Problems reviewed: Yes Reason For Visit: CHEST PAIN Current Active Problems Anxiety disorder (Acute) Chest pain (Acute) Chest pain, atypical (Acute) Hypertensive heart disease (Acute) Condition: Stable - Instructions Diet, Activity, Other Instructions: LOW FAT , LOW SALT DIET. you were admitted for having chest pain. your cardiac work up is negative. 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 Do not lift any heavy weights and you need cardiology clearance before going to your heavy job. Referrals: Josef Singer [Non Staff, Medical] - 06/16/19 (please follow up with the clinic for further care. ) Shin Dimas MD [Staff Physician] - 1 Week (PleASE MAKE AN APPOINTMENT FOR STRESS TEST. ) Melinda Fox [Primary Care Provider] - 1 Week Disposition: HOME - Home Medications Comprehensive Discharge Medication List: Ambulatory Orders Aspirin Coated [Ecotrin -] 81 mg PO DAILY tablet.ec 06/14/19 Escitalopram Oxalate [Lexapro -] 5 mg PO DAILY #30 tablet 06/14/19 This patient is new to me today: No Emergency Visit: No Critical Care patient: No - Discharge Referral Referred to [facility] No
--- NOTE | 2019-06-14 17:57 | EKG ---
Test Reason : Blood Pressure : / mmHG Vent. Rate : 082 BPM Atrial Rate : 082 BPM P-R Int : 148 ms QRS Dur : 080 ms QT Int : 392 ms P-R-T Axes : 065 -23 040 degrees QTc Int : 457 ms NORMAL SINUS RHYTHM NORMAL ECG WHEN COMPARED WITH ECG OF 13-JUN-2019 11:56, NO SIGNIFICANT CHANGE WAS FOUND Confirmed by MD Olson Edward ([id number]) on 06/14/2019 5:56:59 PM Referred By: Confirmed By:Vince Olson MD
--- NOTE | 2019-06-14 18:03 | EKG ---
Test Reason : Blood Pressure : / mmHG Vent. Rate : 073 BPM Atrial Rate : 073 BPM P-R Int : 150 ms QRS Dur : 086 ms QT Int : 404 ms P-R-T Axes : 070 -17 048 degrees QTc Int : 445 ms NORMAL SINUS RHYTHM WITH SINUS ARRHYTHMIA NORMAL ECG WHEN COMPARED WITH ECG OF 13-JUN-2019 15:41, NO SIGNIFICANT CHANGE WAS FOUND Confirmed by MD Whitney, Vince ([id number]) on 06/14/2019 6:02:58 PM Referred By: Jesus MIRANDA Confirmed By:Vince Olson MD
[2019-06-15] MEDS ORDERED: ESCITALOPRAM OXALATE 10 MG TABLET (FP) PO SCH (10:00)
== END 2019-06-14 15:52 | disposition home or self-care (01) | DRG 203 ==
LOC: JER 11:47 → JERBED 14:38 → OBSVTOIN 14:46 → JERBED 20:46 → J6S 20:47
PROVIDERS: ADMIT Internal Medicine; ATTEND Internal Medicine
DX: R07.89 Other chest pain (principal); E78.5 Hyperlipidemia, unspecified; F17.210 Nicotine dependence, cigarettes, uncomplicated; R73.03 Prediabetes; I11.9 Hypertensive heart disease without heart failure; F43.10 Post-traumatic stress disorder, unspecified; F41.9 Anxiety disorder, unspecified
CPT/HCPCS: 36415; 71046-TC-FY; 80053; 80061; 82465; 83036; 83721; 83735; 84100; 84443; 84484; 85025; 85610; 85730; 93005; 93010; 93306-TC; 99285-25; G0378; J1644